=== PATIENT | female | born 1955 | race Caucasian/White ===

== ENCOUNTER → 2016-11-15 | Outpatient (CLI) | payer SELFPAY ==
[2016-11-15 16:29] LABS: FREE T4 (FREE THYROXINE) 1.46 ng/dL (0.93-1.71)
== END ==
LOC: LAB 14:49
PROVIDERS: ATTEND Obstetrics & Gynecology Gynecology
DX: E03.9 Hypothyroidism, unspecified (principal)
CPT/HCPCS: 36415; 84439; 84443